=== PATIENT | female | born 1975 ===

== ENCOUNTER 2020-03-21 08:24 | Outpatient (REF) | payer SELFPAY ==
[2020-03-21 20:50] LABS: Anion Gap 11.3 mmol/L (3-11); BUN 14 mg/dL (7-18); CO2 25.7 mmol/L (21.0-32.0); CREATININE 0.78 mg/dL (0.55-1.02); Calcium 9.1 mg/dL (8.5-10.1); Calculated LDL 178 mg/dL (<100); Chloride 99 mmol/L (98-107); Cholesterol 284 mg/dL (<200); Glucose 83 mg/dL (74-106); HDL Cholesterol 51 mg/dL (40-60); Potassium 4.4 mmol/L (3.5-5.1); Sodium 136 mmol/L (136-145); Triglyceride 277 mg/dL (<150)
[2020-03-21 20:58] LABS: Hemoglobin A1C 5.6 % (3.8-5.6)
[2020-03-21 21:14] LABS: Microalb ug/mg Crea 8.6 ug/mg Cr
== END 2020-03-21 08:44 ==
LOC: NCHCN 08:24
PROVIDERS: PCP Nurse Practitioner Family; Visit Provider Nurse Practitioner Family
DX: I10 Essential (primary) hypertension (principal); E66.9 Obesity, unspecified; Z13.1 Encounter for screening for diabetes mellitus
CPT/HCPCS: 80048; 80061; 82043; 82570; 83036

== ENCOUNTER 2020-10-22 08:34 | Outpatient (REF) | payer SELFPAY ==
[2020-10-22 21:30] LABS: Hemoglobin A1C 5.8 % (<5.7)
[2020-10-22 21:40] LABS: ALT 70 U/L (14-59); AST 28 U/L (15-37); Albumin 3.8 g/dL (3.4-5.0); Alkaline Phosphatase 103 U/L (46-116); Anion Gap 11.3 mmol/L (3-11); BUN 19 mg/dL (7-18); Bilirubin, Total 0.3 mg/dL (0.2-1.0); CO2 21.7 mmol/L (21.0-32.0); CREATININE 0.79 mg/dL (0.55-1.02); Calcium 9.4 mg/dL (8.5-10.1); Calculated LDL 67 mg/dL (<100); Chloride 98 mmol/L (98-107); Cholesterol 145 mg/dL (<200); Glucose 92 mg/dL (74-106); HDL Cholesterol 48 mg/dL (40-60); Potassium 4.2 mmol/L (3.5-5.1); Sodium 131 mmol/L (136-145); Total Protein 7.6 g/dL (6.4-8.2); Triglyceride 152 mg/dL (<150)
== END 2020-10-22 08:54 ==
LOC: NCHCN 08:34
PROVIDERS: PCP Nurse Practitioner Family; Visit Provider Nurse Practitioner Family
DX: E78.5 Hyperlipidemia, unspecified (principal); I10 Essential (primary) hypertension; Z13.1 Encounter for screening for diabetes mellitus
CPT/HCPCS: 80053; 80061; 83036

== ENCOUNTER 2021-09-11 08:08 | Outpatient (REF) | payer SELFPAY ==
[2021-09-11 22:09] LABS: BUN 15 mg/dL (7-18); CREATININE 0.7 mg/dL (0.55-1.02); Calcium 9.2 mg/dL (8.5-10.1); Chloride 103 mmol/L (98-107); Glucose 95 mg/dL (74-106); Potassium 4.2 mmol/L (3.5-5.1); Sodium 140 mmol/L (136-145)
[2021-09-11 22:11] LABS: Hemoglobin A1C 5.4 % (<5.7)
== END 2021-09-11 08:09 | disposition home or self-care (01) ==
LOC: NCHCN 08:08
PROVIDERS: PCP Nurse Practitioner Family; Visit Provider Nurse Practitioner Family
DX: I10 Essential (primary) hypertension (principal); E78.5 Hyperlipidemia, unspecified; R73.03 Prediabetes
CPT/HCPCS: 80048; 83036